=== PATIENT | female | born 1990 | race African-American/Black ===

== ENCOUNTER 2016-09-03 17:23 | Emergency (ER) | payer MEDICAID, OTHER ==
[~2016-09-03] VITALS: Ht 152.4 cm; Wt 56.7 kg
[~2016-09-03 17:23] MED LIST: ALBUTEROL SULF8.5 GM INH; BACTRIM DS TAB1 EAC1 ORAL; CYCLOBENZAPRINE10 MG ORAL; IBUPROFEN600 MG ORAL; IBUPROFEN800 MG ORAL; METRONIDAZOLE500 MG ORAL; NITROFURANTOIN100 M2 ORAL; NKM; NORCO 5-325 TA1 EACH ORAL; ONDANSETRON ODT4 MG ORAL; ZOFRAN4 M3 ORAL
[2016-09-03] MEDS ORDERED: AMOXICILLIN500 MG ORAL (17:42)
[2016-09-03] MEDS ORDERED: IBUPROFEN600 MG ORAL (17:42)
[2016-09-03] MEDS ORDERED: Mylanta II UD 30ml ORAL ONE (18:15)
[2016-09-03] MEDS ORDERED: Dicyclomine HCl 10mg/5ml oral soln ORAL ONE (18:15)
[2016-09-03] MEDS ORDERED: Lidocaine 2% Visc 15ml soln ORAL ONE (18:15)
[2016-09-03 18:36] LABS: APPEARANCE,URINE CLEAR; KETONES,URINE NEGATIVE (NEGATIVE); LEUKOCYTE ESTERASE ,URINE NEGATIVE (NEGATIVE); NITRITE,URINE NEGATIVE (NEGATIVE); PH,URINE 6 (4.5-8.0); PROTEIN,URINE NEGATIVE (NEGATIVE); UROBILINOGEN,URINE NORMAL MG/DL (0.0-1.0)
[2016-09-03 18:59] LABS: BACTERIA,URINE OCCASIONAL /HPF; RBC,URINE 0-2 /HPF (0 - 2); SQUAMOUS EPITHELIAL CELL,UR FEW /LPF (NONE/OCC); WBC,URINE 0-2 /HPF (0 - 2)
[2016-09-03] MEDS ORDERED: PEPCID40 MG PO (19:08)
[2016-09-03] MEDS ORDERED: ACETAMINOPHEN-1 EAC1 ORAL (19:08)
[2016-09-03 19:17] VITALS: BP 137/95
--- NOTE | 2016-09-03 22:54 | Emergency Room Report ---
History of Present Illness General Chief Complaint: Diarrhea Source: Patient Present Illness HPI The patient is a 25-year-old female with a history of uterine fibroids presenting for abdominal pain, diarrhea, and vaginal spotting. The patient states that she has been taking Motrin multiple times a day, every day for the past week due to dental pain. She then began to develop abdominal pain 2 days ago which is described as a 5/10 dull ache to the mid upper abdomen and does not radiate. She has also had diarrhea which began yesterday. Vaginal spotting has been ongoing for the past week. She states that she had a Depo- Provera shot one month ago which was on time. She denies recent travel or sick contacts. She denies fever or chills. She denies any other symptoms Allergies: Coded Allergies: No Known Allergies (Unverified , 02/01/14) Patient History Past Medical History: see triage record Pertinent Family History: none Last Menstrual Period: depo shot Now: No Reviewed Nursing Documentation: PMH: Agreed, PSxH: Agreed Nursing Documentation-PMH Past Medical History: No History, Except For Hx Asthma: Yes Review of Systems All Other Systems: negative except mentioned in HPI Physical Exam Vital Signs Date Time Temp Pulse Resp B/P Pulse Ox O2 Delivery O2 Flow Rate FiO2 09/03/16 17:37 99.0 73 18 161/89 99 Room Air Sp02 EP Interpretation: reviewed, normal General Appearance: no apparent distress, alert, GCS 15, non-toxic Head: normocephalic, atraumatic Eyes: bilateral eye PERRL, bilateral eye normal inspection ENT: hearing grossly normal, normal pharynx, no angioedema, normal voice Neck: full range of motion, supple/symm/no masses Respiratory: chest non-tender, lungs clear, normal breath sounds, speaking full sentences Cardiovascular #1: regular rate, rhythm, no edema Gastrointestinal: normal inspection, soft, no mass, non-distended, no guarding , tenderness - epigastric and suprapubic Genitourinary: normal inspection, no CVA tenderness Musculoskeletal: back normal, gait/station normal, normal range of motion, non- tender Neurologic: alert, oriented x3, responsive, motor strength/tone normal, sensory intact, speech normal Psychiatric: judgement/insight normal, memory normal, mood/affect normal, no suicidal/homicidal ideation Skin: normal color, no rash, warm/dry, well hydrated Lymphatic: no adenopathy Medical Decision Making PA Attestation Dr. Hurtado is my supervising physician. Patient management was discussed with my supervising physician Diagnostic Impression: Primary Impression: Abdominal pain Qualified Codes: R10.9 - Unspecified abdominal pain Additional Impression: Uterine fibroid Qualified Codes: D25.9 - Leiomyoma of uterus, unspecified ER Course The patient is a 25-year-old female presenting for abdominal pain, diarrhea, and vaginal spotting Differential diagnoses considered but not limited to: Gastritis, gastroenteritis , appendicitis, urinary tract infection, uterine fibroids, , among others Physical exam: Afebrile. No apparent distress Abdominal exam reveals tenderness over the epigastric and suprapubic regions only. Otherwise exam is unremarkable Urinalysis unremarkable. The patient is given a GI cocktail and states that she is feeling better The patient will stop taking Motrin and needs to followup with both primary doctor and [facility]. She is discharged home with a prescription for Pepcid and Tylenol No. 3. ER precautions given Laboratory Tests Test 09/03/16 18:19 Urine Color Pale yellow Urine Appearance Clear Urine pH 6 (4.5-8.0) Urine Specific [place] 1.015 (1.005-1.035) Urine Protein Negative (NEGATIVE) Urine Glucose (UA) Negative (NEGATIVE) Urine Ketones Negative (NEGATIVE) Urine Occult Blood 2+ (NEGATIVE) H Urine Nitrite Negative (NEGATIVE) Urine Bilirubin Negative (NEGATIVE) Urine Urobilinogen Normal MG/DL (0.0-1.0) Urine Leukocyte Esterase Negative (NEGATIVE) Urine RBC 0-2 /HPF (0 - 2) Urine WBC 0-2 /HPF (0 - 2) Urine Squamous Epithelial Cells Few /LPF (NONE/OCC) Urine Bacteria Occasional /HPF (NONE) Urine HCG, Qualitative Negative Lab Results Impression Urinalysis shows no signs of infection. Negative Last Vital Signs Date Time Temp Pulse Resp B/P Pulse Ox O2 Delivery O2 Flow Rate FiO2 09/03/16 19:17 98.3 80 16 137/95 99 Room Air Status: improved Disposition: HOME, SELF-CARE Condition: Improved Scripts Acetaminophen With Codeine (T#3) (TYLENOL #3 TAB*) Y Tab 1 TAB ORAL Q6HR Y for For Pain, #8 TAB Prov: DONNA SKAGGS P.A. 09/03/16 Famotidine (PEPCID) 40 Mg Tablet 40 MG PO DAILY, #7 TAB 0 Refills Prov: DONNA SKAGGS 09/03/16 Referrals: [facility] (PCP) Patient Instructions: Gastritis, Adult, Abdominal Pain, Adult, Uterine Fibroids Additional Instructions: I discussed my findings with the patient. All questions and concerns have been answered. Treatment and medication compliance have been addressed. I advised the patient that they need to follow up with PMD in 3-5 days. Return to ED if symptoms worsen, new symptoms arise, or if needed for any reason. Patient verbalized understanding of discharge instructions. DONNA SKAGGS Sep 03, 2016 22:54
== END 2016-09-03 19:20 | disposition home or self-care (01) ==
LOC: EMR 18:40
DX: D25.9 Leiomyoma of uterus, unspecified (principal); R10.9 Unspecified abdominal pain; J45.909 Unspecified asthma, uncomplicated
CPT/HCPCS: 81003; 81025; 99284

== ENCOUNTER 2017-10-10 17:26 | Emergency (ER) | payer MEDICAID, OTHER ==
[~2017-10-10] VITALS: Ht 152.4 cm; Wt 55.3 kg
[~2017-10-10 17:26] MED LIST changes: +ACETAMINOPHEN-1 EAC1 ORAL; +AMOXICILLIN500 MG ORAL; +PEPCID40 MG PO
--- NOTE | 2017-10-10 18:04 | Emergency Room Report ---
History of Present Illness General Chief Complaint: Skin Rash/Abscess Source: Patient Present Illness HPI 26-year-old female presents to the emergency department complaining of persistent itchy bug bites since the beginning of the month. Patient reports that every night she receives more. Patient states that she was seen by her primary care doctor who treated her with permethrin for possible scabies due to slight linear pattern in groups of 3 that the lesions were occurring in. Patient reports itching is the most severe symptom she denies fevers or chills she denies outdoor activities. Patient states that no one else in the household have similar symptoms. Patient states that she also look for bedbugs for which did not find any. Patient states that she applied the cream one time however she felt that the very next morning she had even more. Pt. denies fevers , chills or swollen tender lymph nodes. Denies lesions/rashes elsewhere on the body. Denies new medications or body washes or creams. Denies swelling of the lips, tongue , throat or airway. Denies wheezing, or shortness of breath. Denies recent travel, recent illness or ill contacts. denies blisters, oral lesions, or sloughing of the skin. Allergies: Coded Allergies: No Known Allergies (Unverified , 02/01/14) Patient History Past Medical History: see triage record Past Surgical History: none Pertinent Family History: none Last Menstrual Period: 09/28/17 Now: No : 2 Para: 1 Reviewed Nursing Documentation: PMH: Agreed; PSxH: Agreed Nursing Documentation-PMH Past Medical History: No History, Except For Hx Asthma: Yes Review of Systems All Other Systems: negative except mentioned in HPI Physical Exam Vital Signs Date Time Temp Pulse Resp B/P (MAP) Pulse Ox O2 Delivery O2 Flow Rate FiO2 10/10/17 17:42 98.1 84 18 129/65 96 Room Air 98.1 Sp02 EP Interpretation: reviewed, normal General Appearance: no apparent distress, alert, GCS 15, non-toxic Head: normocephalic, atraumatic Eyes: bilateral eye normal inspection, bilateral eye PERRL ENT: hearing grossly normal, no angioedema, normal voice, other - no swelling of the lips or tongue Neck: full range of motion Respiratory: chest non-tender, lungs clear, normal breath sounds, no respiratory distress, no wheezing, speaking full sentences Cardiovascular #1: regular rate, rhythm, no edema Musculoskeletal: back normal, gait/station normal, normal range of motion, non- tender Neurologic: alert, oriented x3, responsive, motor strength/tone normal, sensory intact, speech normal, grossly normal Psychiatric: judgement/insight normal Skin: normal color, warm/dry, well hydrated, rash - multiple discrete papules with blanching erythema, and excoriations on the UE's and LE's bilaterally as well as few on the trunk and two on the face. no evidence of infection, no blisters or vesicles. does not involve the palms or soles , however some interdigital papules noted. Lymphatic: no adenopathy Medical Decision Making PA Attestation Dr. Hurtado is my supervising Physician whom patient management has been discussed with. Diagnostic Impression: Primary Impression: Insect bites Qualified Codes: W57.XXXA - Bitten or stung by nonvenomous insect and other nonvenomous arthropods, initial encounter ER Course 26-year-old female presents to the emergency department complaining of persistent itchy bug bites since the beginning of the month. Patient reports that every night she receives more. Patient states that she was seen by her primary care doctor who treated her with permethrin for possible scabies due to slight linear pattern in groups of 3 that the lesions were occurring in. Patient reports itching is the most severe symptom she denies fevers or chills she denies outdoor activities. Patient states that no one else in the household have similar symptoms. Patient states that she also look for bedbugs for which did not find any. Patient states that she applied the cream one time however she felt that the very next morning she had even more. Pt. denies fevers , chills or swollen tender lymph nodes. Denies lesions/rashes elsewhere on the body. Denies new medications or body washes or creams. Denies swelling of the lips, tongue , throat or airway. Denies wheezing, or shortness of breath. Denies recent travel, recent illness or ill contacts. denies blisters, oral lesions, or sloughing of the skin. Ddx considered but are not limited to cellulitis, scabies, insect bites, tic bites, spider bites, contact dermatitis, Drug reaction, allergic reaction, fungal infection, lice. Vital signs: are WNL, pt. is afebrile H&PE are most consistent with insect bites of multiple sites. No evidence of infection, no evidence of impending airway compromise or anaphylaxis. ORDERS: none required at this time, the diagnosis is clinical ED INTERVENTIONS: None required at this time. I discussed with this patient that I will be treating her symptomatically that she should also attempted one more application of the permethrin and sometimes a second application his required approximately a week later. Also discussed with this patient that if her symptoms persist she should follow up with dermatology for definitive diagnosis and treatment. Patient was given ED return precautions for worsening or new symptoms and she verbalized her understanding and agreement with this plan. DISCHARGE: At this time pt. is stable for d/c to home. Will provide printed patient care instructions, and any necessary prescriptions. Care plan and follow up instructions have been discussed with the patient prior to discharge. Last Vital Signs Date Time Temp Pulse Resp B/P (MAP) Pulse Ox O2 Delivery O2 Flow Rate FiO2 10/10/17 17:42 98.1 84 18 129/65 96 Room Air 98.1 Disposition: HOME, SELF-CARE Condition: Stable Scripts Hydrocortisone (Hydrocortisone Cream 2.5%) Y Cream.appl 1 APPLIC TP BID, #28.3 GM Prov: Vicki Dhillon 10/10/17 Hydroxyzine HCl (Hydroxyzine HCl) 25 Mg Tablet 25 MG ORAL FOUR TIMES A DAY, #30 TAB Prov: Vicki Dhillon 10/10/17 Referrals: [facility] (PCP) Patient Instructions: Insect Bite Additional Instructions: Take medications as directed. Follow up with a Primary Care Provider in 3-5 days, even if your symptoms have resolved. --Please review list of primary care clinics, if you do not already have a primary care provider Return sooner to ED if new symptoms occur, or current symptoms become worse. Do not drink alcohol, drive, or operate heavy machinery while taking Hydroxyzine as this may cause drowsiness. - Please note that this Emergency Department Report was dictated using [employer] technology software, occasionally this can lead to erroneous entry secondary to interpretation by the dictation equipment. Vicki Dhillon Oct 10, 2017 18:04
[2017-10-10] MEDS ORDERED: HYDROCORTISONE30 G2 TP (18:05)
[2017-10-10] MEDS ORDERED: ATARAX25 MG ORAL (18:05)
[2017-10-10 18:53] VITALS: BP 129/65
== END 2017-10-10 18:16 | disposition home or self-care (01) ==
LOC: EMR 17:57
DX: T14.8XXA Other injury of unspecified body region, initial encounter (principal); W57.XXXA Bitten or stung by nonvenomous insect and other nonvenomous arthropods, initial encounter; Y93.9 Activity, unspecified; Y92.013 Bedroom of single-family (private) house as the place of occurrence of the external cause
CPT/HCPCS: 99283

== ENCOUNTER 2018-03-16 09:36 | Emergency (ER) | payer MEDICAID, OTHER ==
[~2018-03-16] VITALS: Ht 152.4 cm; Wt 58.1 kg
[~2018-03-16 09:36] MED LIST changes: +ATARAX25 MG ORAL; +HYDROCORTISONE30 G2 TP
--- NOTE | 2018-03-16 10:00 | NUR ---
ED Nurse Note: Patient walked in to ER c/o severe toothache radiating to the cum pain level 10/10. Pt AAO x4 but moaning and crying over the severe toothache. VS stable, no fever, no cardiac and pulmonary distress noted. Urine obtained by patient.
[2018-03-16] MEDS ORDERED: Lidocaine 2% Visc 15ml soln ORAL ONE (10:30)
[2018-03-16 10:36] LABS: APPEARANCE,URINE CLEAR; BILIRUBIN, URINE NEGATIVE (NEGATIVE); COLOR,URINE PALE YELLOW; GLUCOSE, URINE (UA) NEGATIVE (NEGATIVE); KETONES,URINE NEGATIVE (NEGATIVE); LEUKOCYTE ESTERASE ,URINE NEGATIVE (NEGATIVE); NITRITE,URINE NEGATIVE (NEGATIVE); PH,URINE 8 (4.5-8.0); PROTEIN,URINE NEGATIVE (NEGATIVE); UROBILINOGEN,URINE NORMAL MG/DL (0.0-1.0)
[2018-03-16 10:40] VITALS: BP 134/86
--- NOTE | 2018-03-16 11:16 | Emergency Room Report ---
History of Present Illness General Chief Complaint: Toothache Source: Patient, Medical Record Present Illness HPI Patient with teeth pain upper and lower on right side of mouth. Pain radiates to jaw. Has braces, last adjustment 3 weeks ago. No fevers. Has had dental work on molars which are not in braces. No medicine taken. Pain rated 7/10, aching and constant. No facial swelling. No URI sy, neck pain, headache. Not . No dysuria. Allergies: Coded Allergies: No Known Allergies (Unverified , 02/01/14) Patient History Past Medical History: see triage record Social History: Denies: smoking Social History Narrative at home Last Menstrual Period: 12/15/2017 Now: No - depo provera : 2 Para: 1 Reviewed Nursing Documentation: PMH: Agreed; PSxH: Agreed Nursing Documentation-PMH Hx Asthma: Yes Review of Systems Constitutional: Reports: see HPI Eye: Denies: eye pain ENT: Reports: see HPI Respiratory: Reports: see HPI Cardiovascular: Denies: chest pain Gastrointestinal: Reports: see HPI Genitourinary: Reports: see HPI Skin: Denies: rash Neurological: Reports: see HPI Physical Exam Vital Signs Date Time Temp Pulse Resp B/P (MAP) Pulse Ox O2 Delivery O2 Flow Rate FiO2 03/16/18 09:51 98.1 84 18 134/86 98 Room Air Sp02 EP Interpretation: reviewed, normal General Appearance: well appearing, no apparent distress, alert, GCS 15 Head: normocephalic, atraumatic Eyes: bilateral eye normal inspection, bilateral eye PERRL ENT: hearing grossly normal, normal voice, other - braces, jaw and molar tenderness without caries - jaw ROM full and not tender Neck: full range of motion, supple Respiratory: lungs clear, no respiratory distress, speaking full sentences Cardiovascular #1: regular rate, rhythm Cardiovascular #2: 2+ radial (R) Gastrointestinal: normal inspection Musculoskeletal: no calf tenderness Neurologic: alert, normal gait, grossly normal Psychiatric: mood/affect normal Skin: no rash Medical Decision Making Diagnostic Impression: Primary Impression: Pain, dental ER Course Patient with dental and jaw pain DDX: abscess, braces pain, other dental pain. No URI. Topical lidocaine and antibiotics used. Improved with lidocaine. Advised to see DDS tomorrow. Patient stable for outpatient observation and treatment. Last Vital Signs Date Time Temp Pulse Resp B/P (MAP) Pulse Ox O2 Delivery O2 Flow Rate FiO2 03/16/18 11:32 98.1 78 18 134/74 98 Room Air Status: improved Disposition: HOME, SELF-CARE Condition: Improved Scripts Tramadol Hcl* (ULTRAM*) 50 Mg Tablet 50 MG ORAL Q6H PRN for For Pain, #6 TAB 0 Refills Prov: Gorge Escalera MD 03/16/18 Amoxicillin* (AMOXIL*) 500 Mg Capsule 500 MG ORAL THREE TIMES A DAY, #21 CAP Prov: Gorge Escalera MD 03/16/18 Lidocaine HCl 2% Viscous (Lidocaine HCl 2% Viscous) 100 Ml Solution 1 APPLIC ORAL QID, #30 ML Prov: Gorge Escalera MD 03/16/18 Ibuprofen* (MOTRIN*) 600 Mg Tablet 600 MG ORAL Q6H PRN for For Pain, #20 TAB Prov: Gorge Escalera MD 03/16/18 Gorge Escalera MD Mar 16, 2018 11:16
[2018-03-16] MEDS ORDERED: LIDOCAINE VISC100 ML ORAL (11:19)
[2018-03-16] MEDS ORDERED: TRAMADOL HCL50 MG ORAL (11:19)
[2018-03-16] MEDS ORDERED: IBUPROFEN600 MG ORAL (11:19)
[2018-03-16] MEDS ORDERED: AMOXICILLIN500 MG ORAL (11:19)
--- NOTE | 2018-03-16 11:28 | NUR ---
ED Nurse Note: Pt rated pain level 2/10 after medications. Received prescriptions with discharge instruction and verbalized fair level of understanding. Pt calm and cooperated with care. Discharged in ambulating in stable condition.
== END 2018-03-16 11:32 | disposition home or self-care (01) ==
LOC: EMR 11:15
DX: K08.89 Other specified disorders of teeth and supporting structures (principal); J45.909 Unspecified asthma, uncomplicated
CPT/HCPCS: 80307; 81003; 81025; 99284

== ENCOUNTER 2018-10-02 10:56 | Emergency (ER) | payer OTHER ==
[~2018-10-02] VITALS: Ht 152.4 cm; Wt 63.5 kg
[~2018-10-02 10:56] MED LIST changes: +LIDOCAINE VISC100 ML ORAL; +TRAMADOL HCL50 MG ORAL
[2018-10-02] MEDS ORDERED: NKM (11:15)
[2018-10-02 11:23] VITALS: BP 142/63
--- NOTE | 2018-10-02 11:26 | NUR ---
ED Nurse Note: pt walked in to ER c/o Rt shoulder severe pain 10. Addendum: 10/02/18 at 1127 by [email or web address] ED Nurse Note: pt walked in to ER c/o Rt shoulder severe pain 12/25. Pt aao x4 and ambulatory. skin clean and intact. pt is crying for pain. pt reported that she has had dislocated shoulder in 2009 and today she was stretching and started having severe pain. no acute cardiac or pulmonary distress noted. no visible signs of dislocation noted.
[2018-10-02] MEDS ORDERED: Ketorolac 30mg Inj ONE (11:29)
[2018-10-02] MEDS ORDERED: Methocarbamol 750mg tab ORAL ONE (11:30)
[2018-10-02] MEDS ORDERED: Ketorolac 30mg Inj IM ONE (11:30)
--- NOTE | 2018-10-02 12:04 | NUR ---
ED Nurse Note: called x-ray for reminder.
--- NOTE | 2018-10-02 12:30 | NUR ---
ED Nurse Note: x-ray at bedside.
--- NOTE | 2018-10-02 13:01 | Diagnostic Imaging Report ---
Indication: Right shoulder pain COMPARISON: None Findings: 2 views of the right shoulder were obtained. No acute fractures, malalignment, erosions or periostitis are identified. Soft tissues are unremarkable. Impression: Negative for acute injury
[2018-10-02] MEDS ORDERED: TRAMADOL HCL50 MG ORAL (13:05)
[2018-10-02] MEDS ORDERED: LIDODERM700 M1 TOPIC (13:05)
[2018-10-02 13:15] VITALS: BP 142/63
--- NOTE | 2018-10-02 13:15 | NUR ---
ER DISCHARGE NOTE: Patient is cleared to be discharged per ERMD after sling applied, pt is aox4, on room air, with stable vital signs. pt was given dc and prescription instructions, pt was able to verbalize understanding, pt id band removed. pt is able to ambulate with steady gait. pt took all belongings.
--- NOTE | 2018-10-06 14:27 | Emergency Room Report ---
History of Present Illness General Chief Complaint: Upper Extremity Injury Source: Patient Present Illness HPI 27-year-old female presents ED for evaluation. Complaining of right shoulder pain. States that it started today after she stretched her shoulder. States she felt intense spasming in the arm and shoulder. 10 out of 10, cramping, nonradiating. States she is unable to raise her arm because of the pain. States that several years ago she did dislocate the shoulder and had it reduced. She has had problems with his shoulder ever since. Has yet to see an orthopedic doctor. No other aggravating relieving factors. Denies any other associated symptoms Allergies: Coded Allergies: Bumble Bee (Verified Allergy, Severe, Anaphylaxis, 10/02/18) Patient History Past Medical History: asthma Past Surgical History: none Pertinent Family History: none Social History: Denies: smoking, alcohol use, drug use Now: No Immunizations: UTD Reviewed Nursing Documentation: PMH: Agreed; PSxH: Agreed Nursing Documentation-PMH Past Medical History: No History, Except For Hx Asthma: Yes Review of Systems All Other Systems: negative except mentioned in HPI Physical Exam Vital Signs Date Time Temp Pulse Resp B/P (MAP) Pulse Ox O2 Delivery O2 Flow Rate FiO2 10/02/18 11:09 98.1 97 20 142/63 (89) 99 Room Air Sp02 EP Interpretation: reviewed, normal General Appearance: alert, GCS 15, non-toxic, mild distress Head: normocephalic, atraumatic Eyes: bilateral eye normal inspection, bilateral eye PERRL ENT: hearing grossly normal, normal pharynx, no angioedema, normal voice Neck: full range of motion, supple/symm/no masses Respiratory: chest non-tender, lungs clear, normal breath sounds, speaking full sentences Cardiovascular #1: regular rate, rhythm, no edema Cardiovascular #2: 2+ carotid (R), 2+ carotid (L), 2+ radial (R), 2+ radial (L) , 2+ dorsalis pedis (R), 2+ dorsalis pedis (L) Gastrointestinal: normal bowel sounds, non tender, soft, non-distended, no guarding, no rebound Rectal: deferred Genitourinary: normal inspection, no CVA tenderness Musculoskeletal: back normal, gait/station normal, decreased range of motion, tender - R shoulder Neurologic: alert, oriented x3, responsive, motor strength/tone normal, sensory intact, speech normal Psychiatric: judgement/insight normal, memory normal, mood/affect normal, no suicidal/homicidal ideation Reflexes: 3+ bicep (R), 3+ bicep (L), 3+ tricep (R), 3+ tricep (L), 3+ knee (R) , 3+ knee (L) Lymphatic: no adenopathy Procedures Splinting Splinting : Consent: Verbal Pre-Made Type: shoulder immobilizer Pre-Proc Neuro Vasc Exam: normal Post-Proc Neuro Vasc Exam: normal Patient Tolerated: Well Complications: None Medical Decision Making Diagnostic Impression: Primary Impression: Shoulder strain Qualified Codes: S46.911A - Strain of unspecified muscle, fascia and tendon at shoulder and upper arm level, right arm, initial encounter ER Course Hospital Course 27 yo F presents to ED c/o R shoulder pain after stretching Differential diagnoses include: Fracture, dislocation, sprain, contusion Clinical course Patient placed on stretcher. After initial history and physical, I ordered pain medications and Xrays of R shoulder Xrays prelim read shows no acute fracture/dislocation. Findings with patient. Likely strain due to mechanism of injury. Patient would benefit from orthopedic evaluation. Placed in shoulder immobilizer. Will also discharge with orthopedic referrals. Diagnosis - shoulder strain Stable and discharged to home. weight bear as tolerated. Followup with ortho. Return to ED if symptoms recur or worsen Other X-Ray Diagnostic Results Other X-Ray Diagnostic Results : X-Ray ordered: R shoulder # of Views/Limited Vs Complete: 3 View Indication: Pain EP Interpretation: Yes Interpretation: no dislocation, no soft tissue swelling, no fractures Impression: No acute disease Electronically Signed by: Electronically signed by Vineet Hill MD Last Vital Signs Date Time Temp Pulse Resp B/P (MAP) Pulse Ox O2 Delivery O2 Flow Rate FiO2 10/02/18 13:15 98.1 78 20 142/63 99 Room Air Status: improved Disposition: HOME, SELF-CARE Condition: Stable Scripts Lidocaine (Lidoderm) 1 Each Adh..patch 1 PATCH TOPIC DAILY, #7 PATCH 0 Refills Patch(es) may remain in place for up to 12 hours in any 24-hour period. Prov: Vineet Hill MD 10/02/18 Tramadol Hcl* (ULTRAM*) 50 Mg Tablet 50 MG ORAL Q6H PRN for For Pain, #12 TAB 0 Refills Prov: Vineet Hill MD 10/02/18 Referrals: [facility] 24 hour /7 days a week by Appointment Only [address] [facility] [address] Patient Instructions: Shoulder Sprain Vineet Hill MD Oct 06, 2018 14:27
== END 2018-10-02 13:15 | disposition home or self-care (01) ==
LOC: EMR 11:56
DX: S46.911A Strain of unspecified muscle, fascia and tendon at shoulder and upper arm level, right arm, initial encounter (principal); X58.XXXA Exposure to other specified factors, initial encounter; Y92.9 Unspecified place or not applicable; Z91.030 Bee allergy status
CPT/HCPCS: 73020; 96372; 99283; J1885

== ENCOUNTER 2019-05-12 12:32 | Emergency (ER) | payer OTHER ==
[~2019-05-12] VITALS: Ht 152.4 cm; Wt 65.3 kg
[~2019-05-12 12:32] MED LIST changes: +LIDODERM700 M1 TOPIC
--- NOTE | 2019-05-12 13:00 | NUR ---
ED Nurse Note: Pt ambulated to ED d/t syncope. Per triage pt stated she passed out for unk reason. Pt is AOx4, calm ancc cooperative. Pt complains of right shoulder pain extending to the arms. Placed on bed and gown;hooked to bus driver/monitor.
[2019-05-12 13:36] VITALS: BP 113/71
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
[2019-05-12 14:05] LABS: APPEARANCE,URINE CLEAR; BILIRUBIN, URINE NEGATIVE (NEGATIVE); COLOR,URINE PALE YELLOW; GLUCOSE, URINE (UA) NEGATIVE (NEGATIVE); KETONES,URINE NEGATIVE (NEGATIVE); LEUKOCYTE ESTERASE ,URINE NEGATIVE (NEGATIVE); NITRITE,URINE NEGATIVE (NEGATIVE); PH,URINE 6.5 (4.5-8.0); PROTEIN,URINE NEGATIVE (NEGATIVE); UROBILINOGEN,URINE NORMAL MG/DL (0.0-1.0)
[2019-05-12 14:33] LABS: BASOPHILS % (AUTO) 0.8 % (0.0-2.0); EOSINOPHILS % (AUTO) 0.4 % (0.0-3.0); HEMATOCRIT 39.9 % (37.0-47.0); HEMOGLOBIN 13.8 G/DL (12.0-16.0); LYMPHOCYTES % (AUTO) 23.6 % (20.0-45.0); MEAN CORPUSCULAR VOLUME 92 FL (80-99); MONOCYTES % (AUTO) 3.6 % (1.0-10.0); NEUTROPHILS % (AUTO) 71.6 % (45.0-75.0); PLATELET COUNT 220 K/UL (150-450); RED BLOOD COUNT 4.36 M/UL (4.20-5.40); RED CELL DISTRIBUTION WIDTH 10.5 % (11.6-14.8); WHITE BLOOD COUNT 7.4 K/UL (4.8-10.8)
[2019-05-12 14:40] VITALS: BP 112/72
[2019-05-12 14:46] LABS: ANION GAP 15 mmol/L (5-15); BLOOD UREA NITROGEN 10 mg/dL (7-18); CALCIUM 9.4 MG/DL (8.5-10.1); CARBON DIOXIDE 22 MMOL/L (21-32); CHLORIDE 107 MMOL/L (98-107); CREATININE 0.9 MG/DL (0.55-1.30); POTASSIUM 3.9 MMOL/L (3.5-5.1); SODIUM 144 MMOL/L (136-145)
[2019-05-12 14:51] LABS: ALANINE AMINOTRANSFERASE 21 U/L (12-78); ALBUMIN 4.2 G/DL (3.4-5.0); ALBUMIN/GLOBULIN RATIO 1.1 (1.0-2.7); ALKALINE PHOSPHATASE 83 U/L (46-116); ASPARTATE AMINO TRANSFERASE 16 U/L (15-37); BILIRUBIN,TOTAL 0.5 MG/DL (0.2-1.0)
[2019-05-12 15:36] VITALS: BP 110/78
--- NOTE | 2019-05-12 15:36 | NUR ---
ER DISCHARGE NOTE: Patient is cleared to be discharged per ERMD, pt is aox4, on room air, with stable vital signs. pt was given dc and prescription instructions, pt was able to verbalize understanding, pt id band and iv site removed without complications. pt is able to ambulate with steady gait. pt took all belongings.
--- NOTE | 2019-05-12 15:38 | Diagnostic Imaging Report ---
Indication: Dyspnea Comparison: 09/01/2014 A single view chest radiograph was obtained. Findings: Cardiomediastinal appearance is within normal limits for age. The lungs are clear. Pulmonary vascularity is appropriate. The diaphragmatic contour is smooth and costophrenic angles are sharp. No pleural effusions are identified. The bones are unremarkable. Impression: No acute findings
--- NOTE | 2019-05-12 15:38 | Diagnostic Imaging Report ---
Indication: Right shoulder pain COMPARISON: None Findings: 3 views of the right shoulder were obtained. No acute fractures, malalignment, erosions or periostitis are identified. Soft tissues are unremarkable. Impression: Negative for acute injury
== END 2019-05-12 15:36 | disposition home or self-care (01) ==
LOC: EMR 13:40
DX: R55 Syncope and collapse (principal); S49.91XA Unspecified injury of right shoulder and upper arm, initial encounter; M25.511 Pain in right shoulder; J45.909 Unspecified asthma, uncomplicated; W01.190A Fall on same level from slipping, tripping and stumbling with subsequent striking against furniture, initial encounter; Y93.89 Activity, other specified; Y92.9 Unspecified place or not applicable; Z91.030 Bee allergy status
CPT/HCPCS: 36415; 71045; 73030; 80053; 80307; 81003; 81025; 84484; 85025; 93005; Z7502; 99284

== ENCOUNTER 2020-05-05 16:12 | Emergency (ER) | payer MEDICAID, OTHER ==
[~2020-05-05] VITALS: Ht 152.4 cm; Wt 65.8 kg
[2020-05-05] MEDS ORDERED: Ketorolac 30mg Inj IM ONE (16:45)
[2020-05-05] MEDS ORDERED: Methocarbamol 750mg tab ORAL ONE (16:45)
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
[2020-05-05 16:56] VITALS: BP 123/75
[2020-05-05] MEDS ORDERED: PREDNISONE20 MG ORAL (17:00)
[2020-05-05] MEDS ORDERED: IBU800 MG PO (17:00)
[2020-05-05] MEDS ORDERED: ROBAXIN-750750 MG PO (17:00)
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
--- NOTE | 2020-05-05 17:04 | NUR ---
ER DISCHARGE NOTE: Patient is cleared to be discharged per ERMD, pt is aox4, on room air, with stable vital signs. pt was given dc and prescription instructions, pt was able to verbalize understanding, shoulder immobilzer placed on pt's right arm. pt is able to ambulate with steady gait. pt took all belongings.
== END 2020-05-05 17:05 | disposition home or self-care (01) ==
LOC: EMR 17:04
DX: G89.29 Other chronic pain (principal); M25.511 Pain in right shoulder; J45.909 Unspecified asthma, uncomplicated; Z79.899 Other long term (current) drug therapy; Z91.030 Bee allergy status
CPT/HCPCS: 96372; J1885; Z7502; 99283